=== PATIENT | male | born 1970 | race Asian ===

== ENCOUNTER 2023-10-07 11:37 | Emergency (ER) | payer OTHER ==
[~2023-10-07] VITALS: Ht 182.9 cm; Wt 94.2 kg
[2023-10-07] MEDS ORDERED: [UNRECOGNIZED DRUG - OTHER] (11:47)
[2023-10-07] MEDS ORDERED: ACET325C5 PO (15:23)
[2023-10-07] MEDS: ACETAMINOPHEN 500 MG TAB PO ONE (15:25)
[2023-10-07 15:34] VITALS: BP 125/74; TEMP 97; O2SAT 99
== END 2023-10-07 15:36 | disposition home or self-care (01) ==
LOC: M ED 11:37
DX: S06.0X0A Concussion without loss of consciousness, initial encounter (principal); Y92.9 Unspecified place or not applicable; Y93.9 Activity, unspecified; Y99.9 Unspecified external cause status; I10 Essential (primary) hypertension; E78.00 Pure hypercholesterolemia, unspecified; Z88.8 Allergy status to other drugs, medicaments and biological substances; Z79.1 Long term (current) use of non-steroidal anti-inflammatories (NSAID)

== ENCOUNTER 2023-12-23 20:20 | Emergency (ER) | payer OTHER ==
[~2023-12-23 20:20] MED LIST: ACET325C5 PO; [UNRECOGNIZED DRUG - OTHER]
[2023-12-23] MEDS: ACETAMINOPHEN 500 MG TAB PO ONE (23:41)
[2023-12-23 23:54] VITALS: BP 136/72; TEMP 97.9; O2SAT 96
== END 2023-12-23 23:55 | disposition home or self-care (01) ==
LOC: M ED 20:20
DX: S83.91XA Sprain of unspecified site of right knee, initial encounter (principal); Y92.9 Unspecified place or not applicable; Y93.9 Activity, unspecified; Y99.9 Unspecified external cause status; I10 Essential (primary) hypertension; E78.5 Hyperlipidemia, unspecified; F17.210 Nicotine dependence, cigarettes, uncomplicated; Z88.8 Allergy status to other drugs, medicaments and biological substances; Z79.1 Long term (current) use of non-steroidal anti-inflammatories (NSAID)

== ENCOUNTER 2024-01-25 11:21 | Outpatient (RCR) | payer OTHER | END 2024-01-29 | LOC: M PT 11:21 | PROVIDERS: ATTEND Physician Assistant | DX: M25.561 Pain in right knee (principal); M72.2 Plantar fascial fibromatosis ==